=== PATIENT | male | born 1960 | race Caucasian/White ===

== ENCOUNTER 2016-09-24 08:31 | Day surgery (SDC) | payer MEDICAID ==
[2016-09-24] MEDS ORDERED: LIDOCAINE 2% MDV (20MG/ML) 20ML VIAL IV ONE (14:00)
[2016-09-24] MEDS ORDERED: PROPOFOL 10 MG/ML VIAL IV ONE (14:00)
--- NOTE | 2016-09-30 16:10 | Operative Note ---
DATE OF SURGERY: 09/24/2016 OPERATION: COLONOSCOPY with cold snare polypectomy x2. PREOPERATIVE DIAGNOSIS: Hematochezia and personal history of colon polyps. POSTOPERATIVE DIAGNOSES: 1. Internal and external hemorrhoids. 2. Rectal polyps x2. PREPARATION QUALITY: Good. ESTIMATED BLOOD LOSS: Minimal. SPECIMENS: Rectal polyps x2. COMPLICATIONS: None apparent. PROCEDURE: After informed consent was obtained from the patient, he was placed in the left lateral decubitus position in the endoscopy suite, sedated and monitored by the department of anesthesia. Digital rectal exam revealed a palpable nodule. No other abnormalities were noted. A well-lubricated VRD187 colonoscope was inserted into the rectum and advanced to the cecum. Preparation quality was good. The cecum, ileocecal valve, appendiceal orifice, ascending colon, transverse colon, descending colon, and sigmoid colon were free of inflammatory changes, mass lesions, or polyps. The rectum revealed 2 sessile polypoid abnormalities ranging in size from 4-6 mm, each removed with a cold snare. It was unclear whether one of these could have been a carcinoid. J-turn views of the anorectum did reveal internal and external hemorrhoids. The endoscope was straightened. The rectal polyps were removed and aspirated and sent for pathology. The rectal ampulla deflated, and the endoscope was removed. RECOMMENDATIONS: The patient will require repeat exam in 3-5 years pending tissue histology. In the interim, he should be following a high-fiber diet and use a fiber supplement. As always, thank you for allowing me to participate in the healthcare of your patients. CC: JONES Cheema
== END 2016-09-24 10:30 | disposition home or self-care (01) ==
LOC: HOP 08:31
PROVIDERS: ATTEND Internal Medicine Gastroenterology
DX: C88.4 Extranodal marginal zone B-cell lymphoma of mucosa-associated lymphoid tissue [MALT-lymphoma] (principal); K64.8 Other hemorrhoids; K64.4 Residual hemorrhoidal skin tags

== ENCOUNTER 2016-10-15 06:13 | Day surgery (SDC) | payer MEDICAID ==
[~2016-10-15 06:13] MED LIST: ACETAMINOPHEN 1,000 MG/100 ML BTL IV ONE; CEFAZOLIN 2 Gram 2 GM/50 ML BAG IVPB ONE
[2016-10-15] MEDS ORDERED: EPINEPHRINE 1 MG/ML AMPUL SQ ONE (14:00)
[2016-10-15] MEDS ORDERED: ROPIVACAINE HCL (NAROPIN) /PF 5MG/ML 20ML VIAL IV ONE ×2 (14:11)
[2016-10-15] MEDS ORDERED: DEXAMETHASONE 4 MG/ML 1ML VIAL IVP ONE (14:11)
[2016-10-15] MEDS ORDERED: FENTANYL PF 100MCG/2ML VIAL IV ONE (14:13)
[2016-10-15] MEDS ORDERED: LIDOCAINE 2% MDV (20MG/ML) 20ML VIAL IV ONE (14:13)
[2016-10-15] MEDS ORDERED: GLYCOPYRROLATE 0.2 MG/ML ML IV ONE (14:13)
[2016-10-15] MEDS ORDERED: ONDANSETRON HCL IV 4 MG/2 ML VIAL IVP ONE (14:13)
[2016-10-15] MEDS ORDERED: SUCCINYLCHOLINE 20 MG/ML 10ML IVP ONE (14:13)
[2016-10-15] MEDS ORDERED: PROPOFOL 10 MG/ML VIAL IV ONE (14:13)
[2016-10-15] MEDS ORDERED: HYDROMORPHONE HCL 2 MG/ML VIAL IV ONE (14:13)
--- NOTE | 2016-10-19 10:50 | Operative Note ---
DATE OF SURGERY: 10/15/2016 Surgeon: Too Aparicio DO PREOPERATIVE DIAGNOSES: 1. Tear of the right rotator cuff. 2. Impingement syndrome of right shoulder. POSTOPERATIVE DIAGNOSES: 1. Tear of the right rotator cuff. 2. Impingement syndrome, right shoulder. 3. Partial tear of the biceps tendon, right shoulder. 4. Osteoarthritis of the right shoulder. OPERATION: 1. Arthroscopic repair, right rotator cuff. 2. Arthroscopic subacromial decompression and acromioplasty of the right shoulder. 3. Arthroscopic release biceps tendon, right shoulder. DESCRIPTION OF PROCEDURE: This 56-year-old male was taken to the operating room, placed in the supine position on the operating room table. A general anesthesia was induced and the patient was placed in the beach chair position with all bony prominences well padded and head well secured. The right shoulder was prepped with Hibiclens and draped in the usual sterile fashion. A posterior portal was established in the glenohumeral joint, and initial evaluation of the joint demonstrated advanced osteoarthritis of the humeral head with full-thickness articular cartilage loss noted, especially on the posterior aspect of the head with much less degree degenerative change on the glenoid. The more anterior portion of the humeral head demonstrated grade 3 changes. The patient's glenoid labrum was frayed but not completely detached. However, severe tearing of the biceps tendon was present with at least 50% or more of the biceps tendon being frayed and not connected. The supraspinatus tendon also was severely damaged with a small area of full-thickness tear being identified. We debrided the biceps tendon and after debriding, we found that there was much less than actually 50% of the tendon. After closer visualization and better perspective after debridement, we felt that this patient would do much better with release, which was performed. The scope was then placed in the subacromial space and thorough subacromial decompression and acromioplasty was performed. The tuberosity was debrided to healthy-appearing bone, and the margins of the tear were identified and debrided. Subsequently, we repaired the rotator cuff utilizing [employer] SpeedBridge technique. Two 4.75 SwiveLock anchors were placed adjacent to the articular cartilage; one at the anterior margin and one at the posterior margin of the tear. Roscoe tape and Fiber tape were placed in these anchors respectively and then passed through the rotator cuff. A single limb of each one of these sutures was then passed through a third SwiveLock anchor, which was a 5.5 anchor placed inferior to the anterior anchor, and the fourth SwiveLock anchor, which was also a 5.5, was placed inferior to the posterior anchor with the remaining 2 tails of suture. Traction was placed on the sutures and the cuff brought down to its anatomic attachment site and secured with impaction of the implantation of the anchors. The sutures were then cut. The repair was seen to be satisfactory. The wound was irrigated and suctioned and the instruments removed. The portals closed with 4-0 nylon suture. An UltraSling was applied and the patient was taken to the recovery room in satisfactory condition. GROSS PATHOLOGY: This patient demonstrated severe osteoarthritis of the right shoulder and will undoubtedly need a total shoulder arthroplasty at some point in the future. The biceps tendon was nearly completely destroyed with only a very thin layer of tendon still intact. Subsequently, the tendon was released. The patient also demonstrated a tearing of the supraspinatus tendon both on the bursal and articular surface. The patient's humeral head demonstrated full-thickness articular cartilage loss on the posterior aspect. MTDD
== END 2016-10-15 10:15 | disposition home or self-care (01) ==
LOC: SUR 06:13
PROVIDERS: ATTEND Orthopaedic Surgery
DX: M75.121 Complete rotator cuff tear or rupture of right shoulder, not specified as traumatic (principal); M75.41 Impingement syndrome of right shoulder; S46.211A Strain of muscle, fascia and tendon of other parts of biceps, right arm, initial encounter; M19.011 Primary osteoarthritis, right shoulder; F17.200 Nicotine dependence, unspecified, uncomplicated
CPT/HCPCS: 29826; 29827; 64415; 01630; J2405; J3010; J1170; J0690; J2795; 76942; J0171; J0330

== ENCOUNTER 2017-02-25 06:20 | Day surgery (SDC) | payer MEDICAID ==
[~2017-02-25 06:20] MED LIST changes: -CEFAZOLIN 2 Gram 2 GM/50 ML BAG IVPB ONE
[2017-02-25] MEDS ORDERED: HYDROMORPHONE HCL 2 MG/ML VIAL IV ONE ×2 (06:21)
[2017-02-25] MEDS ORDERED: DESFLURANE 240 ML BTL INH ONE (06:21)
[2017-02-25] MEDS ORDERED: FENTANYL PF 100MCG/2ML VIAL IV ONE (06:21)
[2017-02-25] MEDS ORDERED: METOCLOPRAMIDE HCL 10 MG/2 ML VIAL IVP ONE (06:21)
[2017-02-25] MEDS ORDERED: LIDOCAINE 2% MDV (20MG/ML) 20ML VIAL IV ONE (06:21)
[2017-02-25] MEDS ORDERED: PROPOFOL 10 MG/ML VIAL IV ONE (06:21)
[2017-02-25] MEDS ORDERED: ONDANSETRON HCL IV 4 MG/2 ML VIAL IVP ONE (06:21)
--- NOTE | 2017-02-25 13:10 | Operative Note ---
DATE OF SURGERY: 02/25/2017 SURGEON: Too Aparicio DO REFERRING PROVIDER: JONES Cheema PREOPERATIVE DIAGNOSES: 1. Olecranon bursitis of the right elbow. 2. Osteophyte of the olecranon process, right proximal ulna. POSTOPERATIVE DIAGNOSES: 1. Olecranon bursitis of the right elbow. 2. Osteophyte of the olecranon process, right proximal ulna. OPERATIVE PROCEDURES: 1. Olecranon bursectomy of the right elbow. 2. Excision olecranon osteophyte, right proximal ulna. DESCRIPTION: This 56-year-old male was taken to the operating room and placed in the supine position on the operating room table. General anesthesia was induced, and the right upper extremity was elevated. It was prepped with Hibiclens and draped in the usual sterile fashion. It was exsanguinated and the tourniquet inflated to 250 mmHg. A "S" type incision was made over the olecranon bursa and posterior aspect of the elbow, and dissection was carried down through the skin and subcutaneous tissue. Undermining of the skin to separate it from the bursa was performed. Once the bursal sac margins were identified, the bursa was excised. We then could easily palpate the olecranon spur, which was present, and a longitudinal incision was made in the triceps tendon at its insertion into the olecranon spur, and subperiosteal elevation over the edge of the spur was performed. Subsequently, an osteotome was used to divide the spur and separate it from the body of the bony olecranon. A rasp was used to further smooth and contour the bony surface. The wound was irrigated with lactated Ringer's solution; 2-0 Vicryl was placed in the tendon to reapproximate the edges [id number]. Hemostasis was obtained with the electrocautery, and the subcutaneous tissue closed with 4-0 Vicryl, and the skin was closed with a running interlocking 3-0 nylon suture. Sterile dressings were applied, and the patient was taken to the recovery room in satisfactory condition. GROSS PATHOLOGY: This patient demonstrated a markedly thickened and fibrotic olecranon bursa. There was no sign of any wound infection. The olecranon bursa was removed along with the osteophyte as described. CC: JONES Cheema
== END 2017-02-25 09:30 | disposition home or self-care (01) ==
LOC: SUR 06:20
PROVIDERS: ATTEND Orthopaedic Surgery
DX: M70.21 Olecranon bursitis, right elbow (principal); M25.721 Osteophyte, right elbow
CPT/HCPCS: 24105; 24120; 01740; J2405; J3010; J1170; J2765